=== PATIENT | male | born 1980 ===

== ENCOUNTER 2023-12-07 19:41 | Emergency (ER) | payer BC, SELFPAY ==
--- NOTE | ~2023-12-07 | CT_ITS ---
EXAMINATION: CT HEAD WITHOUT CONTRAST CLINICAL INFORMATION: Headache. COMPARISON: None available. TECHNIQUE: Contiguous axial imaging was performed from the skull base to vertex without intravenous administration of contrast. This CT examination was performed using dose optimization techniques as appropriate, variously including the following: *Automated exposure control *Adjustment of mA and/or kV according to patient size (this includes techniques or standardized protocols for targeted exams where dose is matched to indication/reason for exam; i.e. extremities or head) *Use of iterative reconstruction technique DLP: 679 mGy-cm FINDINGS: The lateral, third and fourth ventricles are normally outlined. The cortical sulci and basal cisterns are normally outlined as well. There is no acute territorial defect, hemorrhage or midline shift. The extra-axial spaces are unremarkable. Calvarium: Intact. Maxillofacial sinuses and mastoids: Clear as visualized. CT/CT head/brain wo IV con IMPRESSION: No acute intracranial pathology.
[2023-12-07 20:22] VITALS: BP 127/74; PULSE 92; RESP 18; TEMP 36.9; O2SAT 98; BMI 31.9
--- NOTE | 2023-12-07 20:23 | ED.GENADULT ---
HPI - General Adult General Chief complaint: Headache Stated complaint: ref here from PC, abnormal labs, migraines Time Seen by Provider: 12/07/23 22:28 Source: patient, RN notes reviewed and old records reviewed Mode of arrival: ambulatory Limitations: no limitations History of Present Illness HPI narrative: 43-year-old male presents for evaluation of headaches. Patient reports on and off left-sided temporal headache for the last month. He reports recently starting a new job with a poor sleep schedule as he works ?split shifts 5:30 a.m. to 9:00 a.m. and 2:30 p.m. to 6:00 p.m. He reports that his headaches tend to be worse with ?working out, intercourse and when I am stressed He saw his doctor yesterday who did blood work and prescribed him propranolol to take before he works out Patient reports that his blood work was abnormal notably with an ESR of 20 His doctor then told him to go to the emergency department for further evaluation All her than the intermittent throbbing headache he denies any other symptoms including visual changes, nausea vomiting, lightheadedness The patient is a type 1 diabetic with no other medical issues Patient is currently not experiencing this headache Related Data Allergies Allergy/AdvReac Type Severity Reaction Status Date / Time No Known Allergies Allergy Verified 12/07/23 20:26 Review of Systems Constitutional: Constitutional: Denies body ache(s), Denies chills, Denies fever(s) and Reports headache(s) Eyes: Eyes: Denies blurry vision and Denies irritation ENT: Denies vertigo, Denies dizziness, Reports headache(s) and Denies sore throat Cardiovascular: Cardiovascular: Denies chest pain and Denies dyspnea Respiratory: Respiratory: Denies cough and Denies dyspnea Gastrointestinal: Gastrointestinal: Denies abdominal pain, Denies nausea and Denies vomiting Musculoskeletal: Musculoskeletal: Denies back pain Integumentary/Breasts: Skin/Breast: Denies rash Neurologic: Denies confusion, Denies vertigo, Denies dizziness and Reports headache(s) Psychiatric: Psychiatric: Denies confusion PMFSH Social History Social History Advance Directives: No Advance Directives Information Provided: Yes Physical Exam ED Vital Signs: Vital Signs - 24 hr 12/07/23 20:22 Temperature 98.5 F Pulse Rate 92 Respiratory Rate 18 Blood Pressure 127/74 Pulse Oximetry 98 Oxygen Delivery Method Room Air BMI result Body Mass Index 31.9 Const General: No confusion Nutritional Appearance: well nourished Orientation/consciousness: No confusion HENMT Head: Yes normocephalic and Yes atraumatic Throat: Yes posterior oropharynx normal Eyes Eyelids: Yes eyelids normal Conjunctivae: conjunctivae normal Sclerae: sclerae normal Corneas: corneas normal Pupils: Equal, round and reactive pupils present EOM: EOMs intact bilaterally Neck Neck: Yes full ROM Resp Effort & Inspection: normal respiratory effort, able to speak in complete sentences and not labored Skin General skin exam: elasticity normal Neuro General: No confusion Cranial nerves: Yes CN's II-XII intact bilaterally, Yes Equal, round and reactive pupils present and Yes Bilaterally intact EOM present Cognition (Neuro): normal cognition Extrem Other: Moving all extremities well without any obvious deformities Course Course Course Narrative: RME performed by Lilly Devine PA-C. Patient is a 43 year old assigned male at presenting to the emergency department with left sided headache and elevated lab work. Patient states that over the last few months he has been having left sided jew pain and his doctor did blood work and told him to go to the ER. Detailed physical exam and review of systems are deferred to the cosmetics presser. Labs ordered. Patient placed back in the waiting room pending room availability and results. Medical Decision Making Medical Decision Making [facility] Narrative: 43-year-old male with a medical history significant for type 1 diabetes presents for evaluation of intermittent headaches. He is currently asymptomatic. He had an ESR of 20 as an outpatient yesterday. Repeat labs today show normal ESR of 4. The patient's headaches seem to be consistent with activities that elevate his blood pressure such as exercise, intercourse and when he is angry or stressed. His headache is not consistent with temporal arteritis. I offered a CT scan for the patient given the new onset headaches in the patient would like to have this done today. His neuro exam is benign/reassuring. Given the patient is a type 1 diabetic and I have a low suspicion for temporal arteritis I do not feel it is appropriate to treat the patient high dose steroids as this will likely increase his glucose. I will refer the patient to vascular surgery for consideration of biopsy. I discussed with my attending, Dr Granado who agrees with plans. Differential Diagnosis Differential Diagnoses: The differential diagnosis associated with the presentation includes Acute headache Hypertensive headaches Tension headache Cluster headache Migraine headache Temporal arteritis less likely Lab Data [facility] Lab Attestation statement: I reviewed the patient's lab results. No leukocytosis or anemia. Normal platelet count. Normal electrolyte of nonspecific glucose is elevated to 171. The patient is a known diabetic with no evidence of DKA 12/07/23 20:31 12/07/23 20:31 Labs: Lab Results 12/07/23 Range/Units 20:31 WBC 10.3 (4.8-10.8) X10*3/uL RBC 5.24 (4.60-5.80) X10*6/uL Hgb 14.7 (14.0-18.0) g/dl Hct 43.4 (42.0-52.0) % MCV 82.8 (80.0-98.0) fL MCH 28.1 (27.0-33.0) pg MCHC 33.9 (31.0-36.0) g/dl RDW 13.2 (11.0-16.0) % Plt Count 312 (160-400) X10*3/uL MPV 9.4 (9.4-12.4) fL Immature Gran % (Auto) 0.4 (0.0-0.4) % Neut % (Auto) 59.1 (45-73) % Lymph % (Auto) 29.1 (20-40) % [place] % (Auto) 8.8 (2-11) % Eos % (Auto) 2.2 (0-4) % Baso % (Auto) 0.4 (0-2) % Lymph # (Auto) 3.0 (1.2-4.9) X10*3/uL [place] # (Auto) 0.9 (0.1-1.2) X10*3/uL Eos # (Auto) 0.2 (0.0-0.4) X10*3/uL Baso # (Auto) 0.0 (0.0-0.2) X10*3/uL Abs Immat Gran (auto) 0.04 H (0.00-0.03) X10*3/uL Absolute Neuts (auto) 6.1 (2.0-8.3) x10*3/uL Absolute Nucleated RBC 0.000 (0.0-0.012) X10*3/uL Nucleated RBC % (auto) 0.0 (0.0-0.2) /100WBC ESR 4 (0-15) MM/HR Sodium 141 (135-145) mmol/L Potassium 3.6 (3.3-5.1) mmol/L Chloride 106 (96-108) mmol/L Carbon Dioxide 27 (22-29) mmol/L Anion Gap 12 (12-20) BUN 20 H (9-16) mg/dL Creatinine 0.97 (0.5-1.4) mg/dL Estim Creat Clear Calc 95.2 Estimated GFR > 60 Random Glucose 171 H (60-115) mg/dL Calcium 9.8 (8.4-10.2) mg/dL Magnesium 2.1 (1.6-2.6) mg/dL Total Bilirubin 0.3 (0.0-1.0) mg/dL AST 23 (5-37) U/L ALT 43 H (0-40) U/L Alkaline Phosphatase 95 (39-117) U/L C-Reactive Protein 0.23 (< or = 0.50) mg/dL Total Protein 7.6 (6.5-8.0) g/dL Albumin 4.3 (3.5-5.0) g/dL Hold Green Top See Note Independent Interpretation I performed an independent interpretation of an: CT Scan (No acute intracranial hemorrhage mass effect or midline shift) Interpretation: No acute intracranial pathology Discharge Plan Discharge Clinical Impression: Headache Patient Disposition: Home, Self-Care Instructions: Acute Headache (ED) Additional Instructions: Your workup in the ER today was reassuring. This includes your blood work, your ESR was normal at 4. Your CT scan did not show any concerning abnormalities. I have a low suspicion for temporal arteritis. You may still follow-up with vascular surgery, Dr. Sawyer to discuss possible temporal artery biopsy. Your headaches are most likely related to your poor sleep schedule and stress as well as activities that elevate the blood pressure. Follow-up your primary doctor as well and take Tylenol as needed for headaches Referrals: Bryce Sawyer MD [Physician] - (Headaches, elevated ESR) Print Language: Qatari
[2023-12-07 20:39] LABS: MANUAL DIFF FLAG NO
[2023-12-07 20:41] LABS: Basophils Percent Auto 0.4 % (0-2); Eosinophils Absolute Auto 0.2 X10*3/uL (0.0-0.4); Eosinophils Percent Auto 2.2 % (0-4); Hematocrit 43.4 % (42.0-52.0); Hemoglobin 14.7 g/dl (14.0-18.0); Imm Gran Abs Auto 0.04 X10*3/uL (0.00-0.03); Imm Gran Pct Auto 0.4 % (0.0-0.4); Lymphocytes Percent Auto 29.1 % (20-40); Mean Corpuscular HGB Conc 33.9 g/dl (31.0-36.0); Mean Corpuscular Hemoglobin 28.1 pg (27.0-33.0); Mean Corpuscular Volume 82.8 fL (80.0-98.0); Mean Platelet Volume 9.4 fL (9.4-12.4); Monocytes Absolute Auto 0.9 X10*3/uL (0.1-1.2); Monocytes Percent Auto 8.8 % (2-11); Neutrophils Absolute Auto 6.1 x10*3/uL (2.0-8.3); Neutrophils Percent Auto 59.1 % (45-73); Platelet Count 312 X10*3/uL (160-400); Red Blood Count 5.24 X10*6/uL (4.60-5.80); Red Cell Distribution Width 13.2 % (11.0-16.0); White Blood Count 10.3 X10*3/uL (4.8-10.8)
[2023-12-07 21:04] LABS: Alanine Aminotransferase 43 U/L (0-40); Albumin Level 4.3 g/dL (3.5-5.0); Alkaline Phosphatase 95 U/L (39-117); Anion Gap 12 (12-20); Aspartate Amino Transferase 23 U/L (5-37); Bilirubin Total 0.3 mg/dL (0.0-1.0); Blood Urea Nitrogen 20 mg/dL (9-16); C Reactive Protein 0.23 mg/dL (< or = 0.50); Calcium 9.8 mg/dL (8.4-10.2); Carbon Dioxide 27 mmol/L (22-29); Chloride 106 mmol/L (96-108); Creatinine Clr Calc Pharmacy 95.2; Estimated Glomerular Filt Rate > 60; Glucose Random 171 mg/dL (60-115); Magnesium 2.1 mg/dL (1.6-2.6); Potassium 3.6 mmol/L (3.3-5.1); Sodium 141 mmol/L (135-145); Total Protein 7.6 g/dL (6.5-8.0)
[2023-12-07 21:24] LABS: Erythrocyte Sedimentation Rate 4 MM/HR (0-15)
[2023-12-08 00:12] VITALS: BP 131/78; PULSE 75; RESP 16; TEMP 36.5; O2SAT 99
== END 2023-12-08 00:23 | disposition home or self-care (01) ==
PROVIDERS: Physician Assistant Medical; Emergency Provider Emergency Medicine
DX: R51.9 Headache, unspecified (principal); R70.0 Elevated erythrocyte sedimentation rate; E10.9 Type 1 diabetes mellitus without complications
CPT/HCPCS: 36415; 70450; 80053; 83735; 85025; 85652; 86140; 99282; 99284